=== PATIENT | female | born 1940 | race Caucasian/White ===

== ENCOUNTER 2022-03-18 17:49 | Emergency (ER) | payer OTHER, BC ==
[2022-03-18 18:02] VITALS: BP 131/83; PULSE 97; RESP 18; TEMP 98.5; BMI 26.6
== END 2022-03-18 18:59 | disposition home or self-care (01) ==
LOC: JER 17:49
DX: Z20.822 Contact with and (suspected) exposure to COVID-19 (principal)
CPT/HCPCS: 0241U-QW; 99283-25